=== PATIENT | male | born 2000 | race Caucasian/White ===

== ENCOUNTER 2018-05-06 03:33 | Emergency (ER) | payer BC, OTHER ==
[~2018-05-06] VITALS: Ht 175.3 cm; Wt 90.7 kg
[2018-05-06] MEDS ORDERED: LEXAPRO20 MG (03:46)
[2018-05-06] MEDS ORDERED: RISPERDAL0.5 MG (03:48)
[2018-05-06 05:03] VITALS: BP 138/72
--- NOTE | 2018-05-07 11:35 | EKG ---
[place] [address] ELECTROCARDIOGRAM REPORT Name: JANAYMANSI JOHNSON Room: 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
== END 2018-05-06 05:05 | disposition home or self-care (01) ==
LOC: M.ERS 03:33
DX: F41.9 Anxiety disorder, unspecified (principal); F32.9 Major depressive disorder, single episode, unspecified; Z88.1 Allergy status to other antibiotic agents

== ENCOUNTER 2019-09-27 14:39 | Emergency (ER) | payer BC, OTHER ==
[~2019-09-27] VITALS: Ht 180.3 cm; Wt 124.7 kg
[~2019-09-27 14:39] MED LIST: LEXAPRO20 MG; RISPERDAL0.5 MG
[2019-09-27 15:25] LABS: ABSOLUTE EOSINOPHILS 0.1 thou/uL (0.0-0.7); ABSOLUTE LYMPHOCYTES 1.4 thou/uL (0.8-5.3); ABSOLUTE MONOCYTES 0.9 thou/uL (0.0-1.2); ABSOLUTE NEUTROPHILS 2.7 thou/uL (1.6-8.1); BASOPHILS 0.6 %; EOSINOPHILS 2.4 %; HEMATOCRIT 41.6 % (42.0-52.0); HEMOGLOBIN 14.7 gm/dL (14.0-18.0); LYMPHOCYTES 26.5 %; MCH 30.4 pg (26.0-34.0); MCHC 35.4 g/dL (28.0-37.0); MONOCYTES 18.2 %; MPV 8.3 fl. (7.2-11.1); NUCLEATED RBCS 0 /100WBC; PLATELET COUNT* 238 thou/uL (150-400); POLYS 52.3 %; RBC 4.84 mil/uL (4.50-6.00); RDW-CV 12.3 % (10.5-14.5); WBC 5.2 thou/uL (4.0-11.0)
[2019-09-27 15:38] LABS: CALCIUM 8.9 mg/dL (8.5-10.1); POTASSIUM 3.8 mmol/L (3.5-5.1)
[2019-09-27 15:43] LABS: ALBUMIN 3.9 g/dL (3.4-5.0); TOTAL BILIRUBIN 0.3 mg/dL (<0.1-1.0)
[2019-09-27 15:58] LABS: PROTIME 10.2 Seconds (9.20-11.50)
--- NOTE | 2019-09-27 16:06 | EKG ---
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: : 2000 Requested By: Tonie Ludwig Order Number: [id number] Alvarado MD: Anselmo Cedeño Measurements Intervals [place] Rate: 92 P: 59 [place]: 154 QRS: 74 QRSD: 120 T: 18 QT: 353 QTc: 437 Interpretive Statements Sinus rhythm nonspecific st changes Nonspecific intraventricular conduction delay Compared to ECG 05/06/2018 03:44:51 Incomplete right bundle-branch block no longer present Electronically Signed On 09-27-2019 16:05:18 CDT by Anselmo Cedeño [email or web address] <ELECTRONICALLY SIGNED> By: Anselmo Cedeño MD, [facility] 09/27/19 1605 1445 1445 Anselmo Cedeño MD, [facility] /EPI
[2019-09-27] MEDS ORDERED: PREDNISONE 10 M10 M1 PO (17:24)
[2019-09-27] MEDS ORDERED: CARAFATE 1 GM TA1 GM PO (17:24)
[2019-09-27 17:53] VITALS: BP 116/82
== END 2019-09-27 17:55 | disposition home or self-care (01) ==
LOC: M.ERS 14:39
PROVIDERS: Personal Emergency Response Attendant
DX: R07.89 Other chest pain (principal); R05 Cough; R06.02 Shortness of breath